=== PATIENT | male | born 1990 | race Two or more races ===

== ENCOUNTER 2022-04-15 14:35 | Emergency (ER) | payer OTHER ==
[~2022-04-15] VITALS: Ht 170.2 cm; Wt 56.7 kg
[2022-04-15] MEDS ORDERED: LEXAPRO5 MG (15:48)
== END 2022-04-15 21:34 | disposition home or self-care (01) ==
LOC: ER 14:35
DX: J06.9 Acute upper respiratory infection, unspecified (principal); Z20.822 Contact with and (suspected) exposure to COVID-19